=== PATIENT | female | born 1985 | race Caucasian/White ===

== ENCOUNTER 2018-01-19 10:30 | Inpatient (IN) | payer BC ==
[2018-01-20] MEDS ORDERED: CITRIC ACID/SODIUM CITRATE 30 ML UNIT-DOSE CUP PO ONE (09:18)
[2018-01-20] MEDS ORDERED: ELECTROLYTE-148 SOLN 500 ML IV SCH ×2 (09:18→10:48)
[2018-01-20 10:08] VITALS: BMI 32.7
[2018-01-20] MEDS ORDERED: ceFAZolin SODIUM 1 GM VIAL ONE (10:33)
[2018-01-20] MEDS ORDERED: morphine SULFATE/Preservative Free 0.5 MG/ML (1cc Syringe) ONE (10:33)
[2018-01-20] MEDS ORDERED: morphine SULFATE/Preservative Free 0.5 MG/ML (1cc Syringe) SPIN ONE (11:03)
[2018-01-20] MEDS ORDERED: ePHEDrine SULFATE 50 MG/1 ML AMPULE ONE (11:04)
[2018-01-20] MEDS ORDERED: ONDANSETRON 4 MG/2 ML VIAL IVPUSH PRN (11:09)
[2018-01-20] MEDS ORDERED: OXYTOCIN 10 UNITS/ML VIAL ONE (11:16)
[2018-01-20] MEDS ORDERED: OXYTOCIN 20 UNITS in 0.9% NS 20 UNIT/1,000 ML INFUS.BAG IV ONE (12:00)
--- NOTE | 2018-01-20 12:27 | HP ---
Past Medical History - Primary Care Physician PCP:: Lydia Bullock - Admission Chief Complaint: 32yo P1 @ 39.1 weeks with Marginal placenta previa, multiparity ; presents for Primary c/section and bilateral tubal ligation;. Reports no ctx , no Vb, no LOF, + FM History of Present Illness: 1. Partial placenta previa 2. h/o Abnormal PAP History Source: Patient Limitations to Obtaining History: No Limitations - Past Medical History ...: 2 ...Para: 1 ...Term: 1 ...: 0 ...Spon : 0 ...Induced : 0 ...Multiple Gestation: 0 ...LMP: 04/20/17 ... Weeks Gestation by Dates: 39.2 ...EDC by Dates: 01/25/18 ...EDC by Sono: 01/26/18 - Past Surgical History Past Surgical History: Yes: None Hx Myomectomy: No Hx Transabdominal Cerclage: No - Smoking History Smoking history: Never smoked Have you smoked in the past 12 months: No - Alcohol/Substance Use Hx Alcohol Use: No Home Medications - Allergies Allergies/Adverse Reactions: Allergies Allergy/AdvReac Type Severity Reaction Status Date / Time No Known Allergies Allergy Verified 03/14/14 08:22 - Home Medications Home Medications: Ambulatory Orders Vitamins (Sjr) - 1 tab PO DAILY 03/14/14 Ibuprofen [Motrin -] 600 mg PO Q4H PRN #1 tablet 03/16/14 Review of Systems - Review of Systems Constitutional: reports: No Symptoms Eyes: reports: No Symptoms HENT: reports: No Symptoms Neck: reports: No Symptoms Cardiovascular: reports: No Symptoms Respiratory: reports: No Symptoms Gastrointestinal: reports: No Symptoms Genitourinary: reports: No Symptoms Breasts: reports: No Symptoms Reported Musculoskeletal: reports: No Symptoms Integumentary: reports: No Symptoms Neurological: reports: No Symptoms Endocrine: reports: No Symptoms Hematology/Lymphatic: reports: No Symptoms Psychiatric: reports: No Symptoms Physical Exam - Maternity Vital Signs: Vital Signs Temperature 99.2 F 01/20/18 09:10 Pulse Rate 80 01/20/18 09:10 Respiratory Rate 18 01/20/18 09:10 Blood Pressure 129/78 01/20/18 09:10 O2 Sat by Pulse Oximetry (%) Constitutional: Yes: Well Nourished Eyes: Yes: WNL HENT: Yes: WNL Neck: Yes: WNL Cardiovascular: Yes: WNL Lungs: Clear to auscultation Breast(s): Yes: WNL - Abdominal Exam/OB Fundal Height: 39 Number of Fetuses: Single Presentation: Vertex Contractions: No Monitor Mode: External Heart Rate (range): 135 Heart Rate Location: Midline Category: I Accelerations: Uniform Decelerations: None - Vaginal Exam/OB Vaginal Bleediing: No Speculum Exam: No Amniotic Membrane Status: Intact Presentation: Vertex/Position - Physical Exam Musculoskeletal: Yes: WNL Extremities: Yes: WNL Edema: No Integumentary: Yes: WNL ...Motor Strength: WNL Psychiatric: Yes: WNL, Alert, Oriented Assessment/Plan 32yo P1 @ 39.1 wks with Marginal placenta previa and multiparity Category 1 HR Admit to L&D NPO, IVF, Admit labs Anesthesia aware Peds notified Will proceed with Primary c/section Patient also understands that BTL is irreversible procedure, desires to have BTL R/B/A discussed, consent signed
[2018-01-20] MEDS ORDERED: oxyCODONE HCL 5 MG TABLET PO PRN ×2 (12:28)
[2018-01-20] MEDS ORDERED: diphenhydrAMINE HCL 25 MG CAPSULE (FP) PO PRN (12:28)
[2018-01-20] MEDS ORDERED: BENZOCAINE 20% 57 GM BOTTLE TP PRN (12:28)
[2018-01-20] MEDS ORDERED: IBUPROFEN 800 MG/8 ML IJ IVPB PRN (12:28)
[2018-01-20] MEDS ORDERED: METHYLERGONOVINE MALEATE 0.2 MG/1 ML AMP IM PRN (12:28)
[2018-01-20] MEDS ORDERED: WITCH HAZEL 50% (TUCKS) 40 PAD/JAR PAD TP PRN (12:28)
[2018-01-20] MEDS ORDERED: BENZOCAINE 28 GM HEMORRHOIDAL OINTMENT PR PRN (12:28)
[2018-01-20] MEDS ORDERED: IBUPROFEN 600 MG TABLET (FP) PO PRN (12:28)
--- NOTE | 2018-01-20 12:28 | PN ---
Delivery - Delivery Section: Primary Type of Anesthesia: Spinal EBL (cc): 700 Delivery, Single - Stages of Labor Date of Delivery: 01/20/18 Time of Delivery: 11:20 Date Placenta Delivered: 01/20/18 Time Placenta Delivered: 11:22 Placenta: Yes: Expressed - Condition of Pit Furnace Melter/Transformation Manager Present: No Infant Gender: Male Weight: 6 lb 15 oz Position: Right, OT - 1 Minute Total Score: 8 5 Minutes Total Score: 9 - [place] Feeding Plan Initial Plan: Exclusive throughout hospitalization Benefits of Exclusively reinforced: Yes Remarks - Remarks Remarks: Uncomplicated Primary c/section and Tubal ligation
--- NOTE | 2018-01-20 12:28 | OP ---
Operative Note - Note: Operative Date: 01/20/18 Pre-Operative Diagnosis: 32yo P1 @ 39.1 wks with Marginal placenta previa and Multiparity Operation: Primary LST c/section and Bilateral Tubal ligation Findings: Viable Male ROT position, APGARs 8/9 Portions of bilateral tubes Post-Operative Diagnosis: Same as Pre-op Surgeon: Lydia Bullock Music Education Director: Michael Singh Anesthesiologist/MIXING SUPERVISOR: Po Jesus Anesthesia: Spinal Specimens Removed: Bilateral portions of Falopian tubes, including fimbriated ends Estimated Blood Loss (mls): 700 Drains, Volume Out (mls): 200 Fluid Volume Replaced (mls): 1,000 Operative Report Dictated: Yes
[2018-01-20] MEDS ORDERED: OXYTOCIN 20 UNITS in 0.9% NS 20 UNIT/1,000 ML INFUS.BAG IV SCH (12:30)
[2018-01-20] MEDS ORDERED: PROMETHAZINE HCL 25 MG/1 ML VIAL IVPB PRN (12:47)
--- NOTE | 2018-01-20 14:11 | SURG ---
Surgery Rug Setter [place] Note Rug Setter [place]: Michael Singh PA-C Date of Service: 01/20/18 Diagnosis: 32yo P1 @ 39.1 wks with marginal placenta previa and multiparity Procedure: Primary LST c/section and Bilateral Tubal ligation I was present for the entirety of the operative procedure. For further detail, please refer to operative report. Visit type - Case Type Case Type: Scheduled Admission - New patient This patient is new to me today: Yes Date on this admission: 01/20/18
--- NOTE | 2018-01-20 17:02 | OP ---
DATE OF OPERATION: 01/20/2018 PREOPERATIVE DIAGNOSES: A 32-year-old para 1 at 39 weeks with marginal placenta previa and multiparity. POSTOPERATIVE DIAGNOSES: A 32-year-old para 1 at 39 weeks with marginal placenta previa and multiparity. OPERATION: Primary low-segment transverse section and bilateral tubal ligation. FINDINGS: Viable male in ROT position with Apgars of 8 and 9 and portions of bilateral tubes. Normal ovaries noted as well. SURGEON: Lydia Bullock MD PILLOW FILLER: JLAIL White ANESTHESIOLOGIST: Po Jesus MD ANESTHESIA: Spinal. DESCRIPTION OF OPERATIVE PROCEDURE: After assuring informed consent, patient was brought to the operating room where spinal anesthesia was administered. She was placed in dorsal supine position with left lateral tilt. Pfannenstiel skin incision was created with scalpel and carried down to the level of fascia with the Bovie cautery. The fascial incision was extended bilaterally and dissected off the rectus muscle with Bovie cautery. The rectus abdominis was split in the midline, and peritoneum was tented and entered bluntly with good visualization of underlying organs. The peritoneum was retracted with the lower edge of the [place]. The vesicouterine peritoneum was identified, tented, and dissected bilaterally with Metzenbaum scissors. The bladder flap was brought down and retracted with the lower edge of the [place]. The lower uterine segment incision was created with a scalpel and dissected bilaterally with bandage scissors. Infant's head was in ROT position and delivered atraumatically as well as the rest of the 's body. Cord was clamped and cut x2. The placenta was expressed without any difficulty. Excellent hemostasis was noted after using 0 Biosyn and reapproximating the first layer of uterine muscle. After the uterus was cleared of clots and debris and the cervix was opened with the ring forceps, second layer of 0 Biosyn was used to imbricate the uterine first layer. Bladder flap was reapproximated. Excellent hemostasis throughout. Subsequently, each fallopian tube was identified in its turn, and Arleth clamp was placed on the left tube first on its fimbriated end. A large portion of the fallopian tube was excised initially. The stump was initially tied with a 0 plain and then suture ligated with 2-0 Vicryl. Subsequently, the fallopian tube was also interrupted in the mid-ampullary region and tied at each end with plain 2-0 tie. The right fallopian tube was excised in its entirety. All specimens were sent to Pathology. The abdomen was irrigated with normal saline. The peritoneum was reapproximated with 0 Biosyn, after assuring excellent hemostasis. The muscle was reapproximated in the midline with 0 Biosyn. Subcuticular and subcutaneous layers were created with 2-0 and then 3-0 Vicryl, and skin was reapproximated with 0 Biosyn. Excellent hemostasis throughout. All instrument and sponge counts were correct x2. Estimated blood loss was 700 mL. Urine output was 200 mL. Patient received 100 mL of IV fluids and was brought to the recovery room in stable condition. [place] [id number]
[2018-01-20] MEDS: CEFAZOLIN 1 GM/D5W 1 GM/50 ML BAG IVPB SCH (17:55)
[2018-01-21] MEDS: CEFAZOLIN 1 GM/D5W 1 GM/50 ML BAG IVPB SCH ×2 (02:20→09:18)
[2018-01-21 07:57] LABS: BASO % 0.2 % (0-2.0); EOS % 0.1 % (0-4.5); HEMATOCRIT 31.7 % (32.4-45.2); HEMOGLOBIN 10.8 GM/dL (10.7-15.3); LYMPH % 8.4 % (8-40); MCH 28.8 pg (25.7-33.7); MEAN CELL VOLUME 84.7 fl (80-96); MEAN PLT VOLUME 8.8 fl (7.5-11.1); MONO % 7.7 % (3.8-10.2); NEUT % 83.6 % (42.8-82.8); PLATELET COUNT 170 K/MM3 (134-434); RBC 3.74 M/mm3 (3.60-5.2); RDW 14.9 % (11.6-15.6)
--- NOTE | 2018-01-21 08:25 | PN ---
Progress Note, Physician Chief Complaint: s/p c section under spinal anesthesia History of Present Illness: post op day one with duramorph for post op pain control - Current Medication List Current Medications: Active Medications Acetaminophen (Tylenol -) 650 mg PO Q4H PRN PRN Reason: PAIN Benzocaine (Americaine 20% [place] -) 1 spray TP PRN PRN PRN Reason: Pain - Topical Benzocaine (Americaine Ointment -) 1 applic IA PRN PRN PRN Reason: Pain - Topical Bisacodyl (Dulcolax Suppository -) 10 mg IA PRN PRN PRN Reason: CONSTIPATION Diphenhydramine HCl (Benadryl Injection -) 25 mg IVPUSH Q4H PRN PRN Reason: Pruritis Last Admin: 01/21/18 02:37 Dose: 25 mg Diphenhydramine HCl (Benadryl -) 25 mg PO Q8H PRN PRN Reason: FOR ITCHING Cefazolin Sodium (Ancef 1 Gm Premixed Ivpb -) 1 gm in 50 mls @ 100 mls/hr IVPB Q8H-IV AGUEDA Stop: 01/21/18 17:59 Last Admin: 01/21/18 02:20 Dose: 100 mls/hr Dextrose/Lactated Ringer's (D5-Lr -) 1,000 mls @ 125 mls/hr IV ASDIR AGUEDA Ibuprofen (Motrin -) 600 mg PO Q4H PRN PRN Reason: PAIN Ibuprofen (Motrin -) 600 mg PO Q4H PRN PRN Reason: PAIN LEVEL 1 - 3 Ibuprofen (Caldolor Injection -) 800 mg IVPB Q6H PRN PRN Reason: PAIN > 5 if PO not effective. Methylergonovine Maleate (Methergine Injection -) 0.2 mg IM Q4H PRN PRN Reason: EXCESSIVE BLEEDING Ondansetron HCl (Zofran Injection) 4 mg IVPUSH Q4H PRN PRN Reason: NAUSEA Oxycodone HCl (Roxicodone -) 5 mg PO Q4H PRN PRN Reason: PAIN LEVEL 4 - 6 Stop: 01/24/18 23:59 Oxycodone HCl (Roxicodone -) 10 mg PO Q4H PRN PRN Reason: PAIN LEVEL 7 - 10 Stop: 01/21/18 12:27 Promethazine HCl (Phenergan Injection -) 25 mg IVPB Q6H PRN PRN Reason: NAUSEA AND/OR VOMITING Last Admin: 01/20/18 12:50 Dose: 25 mg Senna/Docusate Sodium (Pericolace -) 2 tablet PO HS PRN PRN Reason: CONSTIPATION Simethicone (Mylicon -) 80 mg PO Q4H PRN PRN Reason: GAS Witch Jessika/Glycerin (Tucks Pads -) 1 pad TP PRN PRN PRN Reason: Pain - Topical - Objective Vital Signs: Vital Signs Temperature 98.8 F 01/21/18 06:00 Pulse Rate 88 01/21/18 06:00 Respiratory Rate 20 01/21/18 06:00 Blood Pressure 105/65 01/21/18 06:00 O2 Sat by Pulse Oximetry (%) 99 01/20/18 13:35 Constitutional: Yes: Well Nourished Cardiovascular: Yes: WNL Respiratory: Yes: WNL Gastrointestinal: Yes: WNL Labs: CBC, BMP 01/21/18 06:00 Assessment/Plan Patient doing well, no adverse effect from anesthetic, no headache, pain controlled, dept of anesthesia will sign off care at this time
[2018-01-21] MEDS: IBUPROFEN 600 MG TABLET (FP) PO PRN ×2 (08:52→20:13)
[2018-01-21] MEDS: SIMETHICONE 80 MG TAB.CHEW (FP) PO PRN ×2 (08:53→20:13)
[2018-01-21] MEDS: ACETAMINOPHEN 325 MG TABLET (FP) PO PRN ×2 (08:53→20:13)
--- NOTE | 2018-01-21 09:10 | PN ---
Post Progress Note - Subjective Subjective: No complaints Post Day: 1 Type of Delivery: Primary C/S Vital Signs: Vital Signs Temperature 98.8 F 01/21/18 06:00 Pulse Rate 88 01/21/18 06:00 Respiratory Rate 20 01/21/18 06:00 Blood Pressure 105/65 01/21/18 06:00 O2 Sat by Pulse Oximetry (%) 99 01/20/18 13:35 Breast Exam: Yes: Soft Uterus: Yes: Fundus Firm, Fundus below umbilicus Incision: Yes: Dressing dry and intact Abdomen/GI: Yes: Abdomen soft, Tolerating PO Lochia: Yes: Rubra Lochia, amount: Small Extremities: Yes: Calves non-tender Perineum: Yes: Intact Activity: Ambulating - Labs Labs: CBC WBC 11.0 K/mm3 (4.0-10.0) H D 01/21/18 06:00 RBC 3.74 M/mm3 (3.60-5.2) 01/21/18 06:00 Hgb 10.8 GM/dL (10.7-15.3) 01/21/18 06:00 Hct 31.7 % (32.4-45.2) L 01/21/18 06:00 MCV 84.7 fl (80-96) 01/21/18 06:00 MCH 28.8 pg (25.7-33.7) 01/21/18 06:00 MCHC 34.0 g/dl (32.0-36.0) 01/21/18 06:00 RDW 14.9 % (11.6-15.6) 01/21/18 06:00 Plt Count 170 K/MM3 (134-434) 01/21/18 06:00 MPV 8.8 fl (7.5-11.1) 01/21/18 06:00 Neutrophils % 83.6 % (42.8-82.8) H 01/21/18 06:00 Lymphocytes % 8.4 % (8-40) D 01/21/18 06:00 Monocytes % 7.7 % (3.8-10.2) 01/21/18 06:00 Eosinophils % 0.1 % (0-4.5) 01/21/18 06:00 Basophils % 0.2 % (0-2.0) 01/21/18 06:00 Assessment/Plan POD #1, doing well. care discussed. Continue routine postop care.
[2018-01-21] MEDS ORDERED: BISACODYL 10 MG SUPP.RECT PR PRN (12:29)
[2018-01-21] MEDS: DEXTROSE 5%-LACTATED RINGERS 1,000 ML IV SCH (19:12)
--- NOTE | 2018-01-22 07:10 | PN ---
Post Progress Note - Subjective Subjective: Patient without acute complaints. Reports tolerating oral intake without nausea or vomiting. Ambulating without dizziness. Denies fevers or chills. Pain well controlled with oral pain medication. without difficulty. Passing flatus. Post Day: 2 Type of Delivery: Primary C/S Vital Signs: Vital Signs Temperature 99.6 F 01/21/18 22:00 Pulse Rate 95 H 01/21/18 22:00 Respiratory Rate 18 01/21/18 22:00 Blood Pressure 120/73 01/21/18 22:00 O2 Sat by Pulse Oximetry (%) 99 01/20/18 13:35 Breast Exam: Yes: Soft Uterus: Yes: Fundus Firm, Fundus below umbilicus Incision: Yes: Dressing dry and intact, Redness Abdomen/GI: Yes: Abdomen soft, Tender (mild incisional), Passing flatus, Tolerating PO. No: Abdominal Distention Lochia: Yes: Serosa Lochia, amount: Small Extremities: Yes: Calves non-tender, Edema (trace) Activity: Ambulating - Labs Labs: CBC WBC 11.0 K/mm3 (4.0-10.0) H D 01/21/18 06:00 RBC 3.74 M/mm3 (3.60-5.2) 01/21/18 06:00 Hgb 10.8 GM/dL (10.7-15.3) 01/21/18 06:00 Hct 31.7 % (32.4-45.2) L 01/21/18 06:00 MCV 84.7 fl (80-96) 01/21/18 06:00 MCH 28.8 pg (25.7-33.7) 01/21/18 06:00 MCHC 34.0 g/dl (32.0-36.0) 01/21/18 06:00 RDW 14.9 % (11.6-15.6) 01/21/18 06:00 Plt Count 170 K/MM3 (134-434) 01/21/18 06:00 MPV 8.8 fl (7.5-11.1) 01/21/18 06:00 Neutrophils % 83.6 % (42.8-82.8) H 01/21/18 06:00 Lymphocytes % 8.4 % (8-40) D 01/21/18 06:00 Monocytes % 7.7 % (3.8-10.2) 01/21/18 06:00 Eosinophils % 0.1 % (0-4.5) 01/21/18 06:00 Basophils % 0.2 % (0-2.0) 01/21/18 06:00 Assessment/Plan 32 yo POD # 2 s/p CD, afebrile, vital signs stable, doing well 1. Continue routine postoperative care. 2. Encourage ambulation and incentive spirometer use 3. Continue oral pain medication 4. Anticipate discharge home postoperative day #3 or #4
[2018-01-22] MEDS: IBUPROFEN 600 MG TABLET (FP) PO PRN ×3 (08:54→18:41)
[2018-01-22] MEDS: ACETAMINOPHEN 325 MG TABLET (FP) PO PRN (08:54)
[2018-01-22] MEDS: SIMETHICONE 80 MG TAB.CHEW (FP) PO PRN ×2 (08:58→18:42)
--- NOTE | 2018-01-22 14:28 | PATH ---
Surgical Pathology Report Patient Name: BENTLEY GERBER [facility]. Rec. #: [id number] /Age/Gender: 1985 (Age: 32) / F Account: [id number] Location: [facility] OBS/ACADEMIC ASSOCIATE Taken: 01/20/2018 Received: 01/21/2018 Reported: 01/22/2018 Physicians: Lydia Bullock M.D. Specimen(s) Received A: PLACENTA B: LEFT FALLOPIAN TUBE C: RIGHT FALLOPIAN TUBE Clinical History low-lying placenta x1, 02/2014 IUI Final Diagnosis A. PLACENTA, SECTION: 457 G THIRD TRIMESTER PLACENTA WITH TRIVASCULAR UMBILICAL CORD, FOCAL INTRAPARENCHYMAL INFARCT (<10% OF PLACENTAL SURFACE) AND UNREMARKABLE PLACENTAL MEMBRANES. B. FALLOPIAN TUBE, LEFT, PARTIAL EXCISION: FULL LUMINAL PORTION OF UNREMARKABLE FALLOPIAN TUBE. C. FALLOPIAN TUBE, RIGHT, PARTIAL EXCISION: FULL LUMINAL PORTION OF UNREMARKABLE FALLOPIAN TUBE. Electronically Signed Bijal Slaughter M.D. Gross Description A. The specimen is received fresh labeled placenta and is a 457 gram, 19.0 x 16.5 x 1.8 cm. placenta with attached membranes and umbilical cord. The attached membranes are lorenzana, translucent with focal opacities and insert marginally. The umbilical cord measures 50 cm. in length and averages 1.2 cm. in diameter. The cord inserts eccentrically, 3.5 cm. to the nearest margin. No true knots or strictures are identified. Cut surface of the umbilical cord reveals 3 vessels. The surface is cameron-blue with minimal fibrin deposition and appropriate caliber vessels. The maternal surface is red-brown with focal defects. Sectioning reveals a 1.8 cm in greatest dimension lorenzana, firm intraparenchymal lesion. The remaining placental parenchyma is red-brown and spongy. Chlorinator Operator sections are submitted in 4 cassettes as follows: 1-membrane roll and umbilical cord; 2-lesion; 3-4-full thickness sections of placenta. B. Received in formalin labeled "portion of left fallopian tube," is a 2.3 cm in length fimbriated fallopian tube. The outer surface is pink-lorenzana and smooth. Sectioning reveals an unremarkable lumen. Chlorinator Operator sections are submitted in 2 cassettes as follows: 1-fimbria; 2-cross sections of fallopian tube. C. Received in formalin labeled "portion of right fallopian tube," is a 3.2 cm in length fimbriated fallopian tube. The outer surface is pink-lorenzana and smooth. Sectioning reveals an unremarkable lumen. Chlorinator Operator sections are submitted in 2 cassettes as follows: 1-fimbria; 6-fhoxy-tadfheaw of fallopian tube. 01/21/201801/21/2018
[2018-01-22] MEDS ORDERED: SENNOSIDES/DOCUSATE COMBO (SENNA PLUS) TABLET (UD) PO PRN (22:00)
[2018-01-23] MEDS: IBUPROFEN 600 MG TABLET (FP) PO PRN ×2 (00:01→10:45)
--- NOTE | 2018-01-23 08:13 | DS ---
Physical Exam-LAWYER Vital Signs: Vital Signs Temperature 98.7 F 01/22/18 22:00 Pulse Rate 68 01/22/18 22:00 Respiratory Rate 18 01/22/18 22:00 Blood Pressure 120/72 01/22/18 22:00 O2 Sat by Pulse Oximetry (%) 99 01/20/18 13:35 Constitutional: Yes: Well Nourished, No Distress, Calm Eyes: Yes: WNL, Conjunctiva Clear, EOM Intact HENT: Yes: WNL, Atraumatic, Normocephalic Neck: Yes: WNL, Supple, Trachea Midline Cardiovascular: Yes: WNL, Regular Rate and Rhythm Respiratory: Yes: WNL, Regular, CTA Bilaterally Gastrointestinal: Yes: WNL ...Rectal Exam: Yes: WNL Renal/: Yes: WNL ....Post : Yes: Uterus firm, Uterus non-tender, Slight lochia rubra Breast(s): Yes: WNL Musculoskeletal: Yes: WNL Extremities: Yes: WNL Edema: No Integumentary: Yes: WNL Wound/Incision: Yes: Clean/Dry, Well Approximated, Sutures Intact Neurological: Yes: WNL, Alert, Oriented ...Motor Strength: WNL Psychiatric: Yes: WNL, Alert, Oriented Labs: CBC, BMP 01/21/18 06:00 Delivery - Delivery Section: Primary, Low Flap Transverse Type of Anesthesia: Spinal Episiotomy/Laceration: None EBL (cc): 700 Delivery, Single - Stages of Labor Date of Delivery: 01/20/18 Time of Delivery: 11:20 Time Placenta Delivered: 11:22 Placenta: Yes: Expressed - Condition of Head Turning Machine Operator/Flat Optical Element Maker Present: No Infant Gender: Male Weight: 6 lb 15 oz Position: Right, OT Total Hours ROM (Hrs/Mins): 0HR/3MIN - 1 Minute Total Score: 8 5 Minutes Total Score: 9 - [place] Feeding Plan Initial Plan: Exclusive throughout hospitalization Benefits of Exclusively reinforced: Yes Discharge Summary Reason For Visit: Procedures: Principal: primary LST c/s Condition: Good - Instructions Diet, Activity, Other Instructions: regular diet, no intercourse , if fever,heavy vagianl bleedibf, pain call , follow up office 1 week Referrals: Lydia Bullock MD [Staff Physician] - Disposition: HOME - Home Medications Comprehensive Discharge Medication List: Ambulatory Orders Vitamins (Sjr) - 1 tab PO DAILY 03/14/14 Cholecalciferol (Vitamin D3) [Vitamin D3 -] 400 unit PO DAILY 01/21/18 Ranitidine HCl [Zantac] 150 mg PO DAILY 01/21/18 Ibuprofen [Motrin -] 600 mg PO QID #28 tablet 01/22/18
[2018-01-23 08:31] LABS: BASO % 0.5 % (0-2.0); EOS % 2.3 % (0-4.5); HEMATOCRIT 31.1 % (32.4-45.2); HEMOGLOBIN 10.4 GM/dL (10.7-15.3); LYMPH % 18.2 % (8-40); MCH 28.7 pg (25.7-33.7); MCHC 33.6 g/dl (32.0-36.0); MEAN CELL VOLUME 85.4 fl (80-96); MEAN PLT VOLUME 8.7 fl (7.5-11.1); MONO % 6.4 % (3.8-10.2); NEUT % 72.6 % (42.8-82.8); PLATELET COUNT 191 K/MM3 (134-434); RBC 3.64 M/mm3 (3.60-5.2); RDW 15.8 % (11.6-15.6); WHITE BLOOD COUNT 8.1 K/mm3 (4.0-10.0)
[2018-01-23 12:02] VITALS: BP 112/75; PULSE 70; TEMP 98.5
== END 2018-01-23 11:45 | disposition home or self-care (01) | DRG 766 ==
LOC: JLDR 01-20 09:10 → J3W 01-20 14:25
PROVIDERS: ADMIT Obstetrics & Gynecology; ATTEND Obstetrics & Gynecology
PROC: 10D00Z1 Extraction of Products of Conception, Low, Open Approach (ICD-10-PCS; principal; 2018-01-20)
PROC: 0UL70ZZ Occlusion of Bilateral Fallopian Tubes, Open Approach (ICD-10-PCS; 2018-01-20)
DX: O44.23 Partial placenta previa NOS or without hemorrhage, third trimester (principal); Z3A.39 39 weeks gestation of pregnancy; Z37.0 Single live birth; Z30.2 Encounter for sterilization
CPT/HCPCS: 36415; 85025; 88302-TC; 88307-TC

== ENCOUNTER 2021-05-28 09:20 | Emergency (ER) | payer BC, OTHER ==
[2021-05-28 09:33] VITALS: TEMP 98.2; BMI 26.5
[2021-05-28 11:08] VITALS: BP 113/59; PULSE 84
== END 2021-05-28 13:05 | disposition home or self-care (01) ==
LOC: JERFT 09:20
DX: T63.481A Toxic effect of venom of other arthropod, accidental (unintentional), initial encounter (principal)
CPT/HCPCS: 99281-25

== ENCOUNTER 2022-08-01 08:54 | Emergency (ER) | payer BC, OTHER ==
[2022-08-01] MEDS ORDERED: SODIUM CHLORIDE 1,000 ML IV SCH (09:00)
[2022-08-01 09:02] VITALS: BMI 26.6
[2022-08-01] MEDS ORDERED: METOCLOPRAMIDE HCL INJECTION 10 MG/2 ML VIAL IVPB ONE (09:18)
[2022-08-01] MEDS ORDERED: ACETAMINOPHEN 1000 MG/100 ML BAG IVPB ONE ×2 (09:18→09:19)
[2022-08-01] MEDS ORDERED: METOCLOPRAMIDE HCL INJECTION 10 MG/2 ML VIAL IVPUSH ONE (09:19)
[2022-08-01 09:48] LABS: BASO % 0.4 % (0-2.0); EOS % 0.3 % (0-4.5); HEMATOCRIT 40.9 % (32.4-45.2); HEMOGLOBIN 14.1 GM/dL (10.7-15.3); LYMPH % 13.5 % (8-40); MCH 29.7 pg (25.7-33.7); MCHC 34.6 g/dl (32.0-36.0); MEAN CELL VOLUME 85.8 fl (80-96); MEAN PLT VOLUME 7.7 fl (7.5-11.1); MONO % 4.3 % (3.8-10.2); NEUT % 81.5 % (42.8-82.8); PLATELET COUNT 282 10^3/uL (134-434); RBC 4.77 M/mm3 (3.60-5.2); RDW 12.9 % (11.6-15.6); WHITE BLOOD COUNT 10.7 K/mm3 (4.0-10.0)
[2022-08-01 09:56] LABS: INR 1.13 (0.83-1.09)
[2022-08-01 09:59] LABS: ACTIVATED PTT 27.5 SECONDS (25.2-36.5)
[2022-08-01] MEDS ORDERED: ACETAMINOPHEN INJECTION 100 ML IVPB ONE (10:49)
[2022-08-01] MEDS ORDERED: METOCLOPRAMIDE HCL INJECTION 10 MG/2 ML VIAL ONE (10:49)
[2022-08-01 10:59] VITALS: RESP 18
[2022-08-01 11:00] LABS: CHLORIDE 104 mmol/L (98-107); SODIUM 138 mmol/L (136-145)
[2022-08-01 11:02] LABS: ANION GAP 16 MMOL/L (8-16); CO2 18 mmol/L (21-32)
[2022-08-01 11:03] LABS: ALBUMIN 3.8 g/dl (3.4-5.0)
[2022-08-01 11:04] LABS: BLOOD UREA NITROGEN 18.9 mg/dL (7-18); GLUCOSE,RANDOM 174 mg/dL (74-106)
[2022-08-01 11:06] LABS: CREATININE 1.1 mg/dL (0.55-1.3); SGOT/AST 15 U/L (15-37); SGPT/ALT 17 U/L (13-61)
[2022-08-01 11:07] LABS: CHOLESTEROL 177 mg/dL (50-200); TOT PROT 7.3 g/dl (6.4-8.2); TRIGLYCERIDES 87 mg/dL (0-150)
[2022-08-01 11:08] LABS: LDL CHOLESTEROL (ONLY SJRH) 109 mg/dL (5-100)
[2022-08-01 11:09] LABS: BILIRUBIN,TOTAL 0.4 mg/dL (0.2-1)
[2022-08-01 11:10] LABS: ALK PHOS 87 U/L (45-117); HDL CHOLESTEROL 54 mg/dL (40-60)
[2022-08-01 12:18] VITALS: BP 111/76; PULSE 76; TEMP 97.8
== END 2022-08-01 12:20 | disposition home or self-care (01) ==
LOC: JER 08:54
PROC: 3E033GC Introduction of Other Therapeutic Substance into Peripheral Vein, Percutaneous Approach (ICD-10-PCS; principal; 2022-08-01)
DX: G43.909 Migraine, unspecified, not intractable, without status migrainosus (principal)
CPT/HCPCS: 36415; 70450-TC; 80053; 80061; 82550; 82962; 83036; 84484; 85025; 85610; 85730; 86850; 86900; 86901; 93005; 93010; 99285-25